=== PATIENT | female | born 1990 | race African-American/Black ===

== ENCOUNTER 2018-06-07 16:49 | Emergency (ER) | payer OTHER ==
[~2018-06-07] VITALS: Ht 170.2 cm; Wt 102.1 kg
[~2018-06-07 16:49] MED LIST: AUGMENTIN 875875 MG PO; DICLEGIS DR 101 EACH PO; FLAGYL500 MG PO; FLEXERIL PO; IBUPROFEN 600600 M1 PO; IBUPROFEN 800800 M1 PO; LEXAPRO 10 MG T10 M1 PO; NOHOMEMEDICATIONS; NORCO 5-325 TA1 EACH PO; TYLENOL COLD-F240 ML; WELLBUTRIN XL300 MG PO
[2018-06-07 17:54] LABS: URINE CLARITY CLEAR; URINE COLOR YELLOW; URINE GLUCOSE-RANDOM* NEGATIVE (Negative); URINE PROTEIN (DIPSTICK) NEGATIVE (Negative); URINE SPECIFIC GRAVITY 1.025 (1.005-1.035)
[2018-06-07 17:55] LABS: URINE BILIRUBIN NEGATIVE (Negative); URINE BLOOD NEGATIVE (Negative); URINE KETONES 2+ (Negative); URINE LEUKOCYTES-REFLEX NEGATIVE (Negative); URINE NITRITE-REFLEX NEGATIVE (Negative); URINE UROBILINOGEN 0.2 E.U./dl (0.2-1.0)
[2018-06-07 18:49] LABS: ABSOLUTE NEUTROPHILS 5.9 thou/uL (1.4-8.2); BASOPHILS 0.5 % (0.0-2.0); EOSINOPHILS 0.7 % (0.0-3.0); HEMATOCRIT 39.2 % (37.0-47.0); HEMOGLOBIN 13.2 gm/dL (12.0-15.0); LYMPHOCYTES 23.3 % (24.0-44.0); MCH 29.4 pg (26.0-34.0); MCHC 33.6 g/dL (28.0-37.0); MCV 87.6 fL (80.0-100.0); MONOCYTES 4.6 % (1.0-8.0); PLATELET COUNT 216 thou/uL (150-400); POLYS 70.9 % (36.0-66.0); RBC 4.47 mil/uL (4.20-5.00); RDW 13.3 % (10.5-14.5); WBC 8.3 thou/uL (4.0-11.0)
[2018-06-07 18:54] LABS: CALCIUM 8.8 mg/dL (8.5-10.1); CREATININE 1.1 mg/dL (0.6-1.0); POTASSIUM 3.7 mmol/L (3.5-5.1)
[2018-06-07] MEDS ORDERED: COMPLETENATE T1 EACH PO (20:09)
[2018-06-07] MEDS ORDERED: DICLEGIS DR 101 EACH PO (20:09)
[2018-06-07 20:24] VITALS: BP 122/77
== END 2018-06-07 20:31 | disposition home or self-care (01) ==
LOC: ER 16:49
PROVIDERS: Physician Assistant; Student in an Organized Health Care Education/Training Program
DX: O26.891 Other specified pregnancy related conditions, first trimester (principal); Z3A.01 Less than 8 weeks gestation of pregnancy; R10.30 Lower abdominal pain, unspecified; R19.7 Diarrhea, unspecified

== ENCOUNTER 2019-11-13 14:17 | Emergency (ER) | payer OTHER ==
[~2019-11-13] VITALS: Ht 170.2 cm; Wt 95.3 kg
[~2019-11-13 14:17] MED LIST changes: +COMPLETENATE T1 EACH PO
[2019-11-13 16:34] VITALS: BP 114/72
== END 2019-11-13 16:37 | disposition home or self-care (01) ==
LOC: ER 14:17
DX: S01.411A Laceration without foreign body of right cheek and temporomandibular area, initial encounter (principal); Z79.899 Other long term (current) drug therapy; W22.8XXA Striking against or struck by other objects, initial encounter; Y93.89 Activity, other specified; Y92.89 Other specified places as the place of occurrence of the external cause; Y99.9 Unspecified external cause status